=== PATIENT | male | born 1980 | race Caucasian/White ===

== ENCOUNTER → 2016-07-27 | Outpatient (CLI) | payer BC ==
[~2016-07-27] MED LIST: GADAVIST IV PRN; PRLSR20 PO
--- NOTE | 2016-07-27 19:49 | DIAGNOSTIC IMAGING REPORT ---
Brain MRI WITH AND WITHOUT CONTRAST HISTORY: Mental status change OTHER COMPLICATED MUÑOZ SYNDROME, CONFUSION TECHNIQUE: Multiplanar multisequence MRI of the brain was performed both before and after the intravenous administration of contrast. COMPARISON STUDY: None. FINDINGS: There are no areas of restricted diffusion to suggest acute infarction. The midline structures are intact. The paranasal sinuses are clear. The mastoid air cells are clear. The ventricles and sulci are within normal limits for age. There is no mass, hematoma, midline shift. The major vascular flow-voids at the skull base are well maintained. Postcontrast sequences show no areas of abnormal enhancement. IMPRESSION: No acute intracranial abnormality. Electronically signed by: Seb Stroud M.D. 07/27/2016 6:02 PM Dictated Date/Time: 07/27/2016 5:58 PM
== END | disposition home or self-care (01) ==
LOC: C.MRI 17:02
PROVIDERS: ATTEND Family Medicine
DX: G44.59 Other complicated headache syndrome (principal); M62.81 Muscle weakness (generalized); R53.83 Other fatigue; R41.0 Disorientation, unspecified; R53.81 Other malaise